=== PATIENT | female | born 1975 | race Caucasian/White ===

== ENCOUNTER 2020-04-14 18:42 | Emergency (ER) | payer OTHER ==
--- NOTE | 2020-04-14 18:50 | PDOC ---
Rapid Medical Evaluation Time Seen by Provider: 04/14/20 18:45 Medical Evaluation: Allergies Allergy/AdvReac Type Severity Reaction Status Date / Time No Known Allergies Allergy Verified 04/14/20 18:45 04/14/20 18:46 I have performed a brief in-person evaluation of this patient. The patient presents with a chief complaint of: (spon ab x 2), ~6-7 weeks , here w/ on and off vaginal spotting x 4 days. No abd pain, dysuria, n/v/f/c. Has 1st at [address] in am Pertinent physical exam findings:stable, NAD I have ordered the following:labs/US The patient will proceed to the ED for further evaluation. Discharge Disposition - Diagnosis Vaginal bleeding affecting early - Referrals - Patient Instructions - Post Discharge Activity
[2020-04-14 18:52] VITALS: TEMP 98.3; BMI 29.2
--- NOTE | 2020-04-14 19:27 | PDOC ---
History of Present Illness - General Chief Complaint: Vaginal Bleeding Stated Complaint: VAGINAL BLEEDING/5WKS PREG Time Seen by Provider: 04/14/20 18:45 History Source: Patient Exam Limitations: No Limitations - History of Present Illness Initial Comments: 04/14/20 19:21 44 year old female with no significant pmhx (spon ab x 2), ~6-7 weeks complaining of 1 day of painless vaginal spotting. Pt states she noticed the spotting on her underwear. Pt states she only has 1 sexual partner. Pt denies hematuria, dysuria, vaginal discharge or ordor, passing any clots, abdominal cramping. Pt states she has had similar symptoms in the past with her 1st and 3rd pregnancies which resulted in spontaneous abortions. Pt otherwise denies any other symptoms. Past History - Medical History Allergies/Adverse Reactions: Allergies Allergy/AdvReac Type Severity Reaction Status Date / Time No Known Allergies Allergy Verified 04/14/20 18:45 Home Medications: Ambulatory Orders Ferrous Sulfate [Feosol] 325 mg PO BID #1 ud 11/10/13 Vitamins (Sjr) - 1 tab PO DAILY #1 tablet 11/10/13 Acetaminophen [Tylenol .Regular Strength -] 650 mg PO Q3H PRN #0 tablet 12/10/15 Ferrous Sulfate [Feosol] 325 mg PO BID ud 12/10/15 Ibuprofen [Motrin -] 200 mg PO Q4H PRN #0 tablet 12/10/15 Vitamins (Sjr) - 1 tab PO DAILY tablet 12/10/15 Asthma: No Cancer: No Cardiac Disorders: No COPD: No Diabetes: Yes () HTN: No Seizures: No Thyroid Disease: No - Immunization History Immunization Up to Date: Yes - Psycho-Social/Smoking History Smoking History: Never smoked Have you smoked in the past 12 months: No - Substance Abuse Hx (Audit-C & DAST Scrn) How often the patient has a drink containing alcohol: Monthly or less Score: In Men: 4 or > Positive; In Women: 3 or > Positive: 1 Screen Result (Pos requires Nsg. Audit-10AR): Negative In the last yr the pt used illegal drug/Rx for NonMed reason: No Score: Yes response is considered Positive: 0 Screen Result (Positive result requires Nsg. DAST-10): Negative Review of Systems - Review of Systems Constitutional: No: Chills, Fever, Weakness Respiratory: No: Shortness of Breath Cardiac (ROS): No: Chest Pain ABD/GI: No: Abdominal Distended, Diarrhea, Nausea, Vomiting : Yes: Symptoms Reported (vaginal bleeding). No: Burning, Dysuria, Discharge, Hematuria, Urgency Musculoskeletal: No: Back Pain Neurological: No: Headache, Numbness, Tingling, Weakness, Dizziness Hematologic/Lymphatic: No: Easy Bleeding *Physical Exam - Vital Signs Last Vital Signs Temp Pulse Resp BP Pulse Ox 98.3 F 71 20 128/70 100 04/14/20 18:46 04/14/20 18:46 04/14/20 18:46 04/14/20 18:46 04/14/20 18:46 - Physical Exam 04/14/20 19:25 Gen: AAOx 3, no acute distress, comfortable, no signs of respiratory distress HENT: atraumatic, normocephalic with no laceration or contusion. Nasal mucosa without erythema. Oropharynx without erythema or exudates. Mucous membranes moist. EYES: PERRL, EOM intact, conjunctiva pink NECK: supple; trachea midline; no JVD, no lymphadenopathy, or thyromegaly CV: RRR no murmurs, gallops, or rubs. CHEST: CTA b/l no wheezing, rales or rhonchi ABD: +BS/ND. no TTP; soft, no rebound, no guarding PELVIC: No external lesions, vaginal vault: no discharge, minimal blood, - midline tenderness elicited with manual exam, no CMT or adnexal tenderness; os with blood covering opening unable to visualize EXTREMITY: no cyanosis or erythema. 2+ dorsalis pedis, posterior tibial, and radial pulse. No pedal edema; no calf swelling or tenderness SKIN: no rash, warm and dry, no diaphoresis HEME: no purpura or ecchymosis NEURO: normal speech, CN II-XII intact, sensation intact, normal gait, no cerebellar deficits MS: 5/5 strength in all extremities, FROM intact in all extremities. Medical Decision Making - Medical Decision Making 04/14/20 19:26 44 year old female (spon ab x 2), ~6-7 weeks with vaginal spotting. T&S, UA, UC, beta HCG transvaginal US to assess for etopic . Will reassess based on results. Pt signed out to Jh MOORE pending TVUS results, labs and UA. 04/14/20 21:46 Discharge - Discharge Information Problems reviewed: Yes Clinical Impression/Diagnosis: Vaginal bleeding affecting early - Follow up/Referral - Patient Discharge Instructions - Post Discharge Activity
--- NOTE | 2020-04-14 20:17 | PDOC ---
*Physical Exam - Vital Signs Last Vital Signs Temp Pulse Resp BP Pulse Ox 98.3 F 71 20 128/70 100 04/14/20 18:46 04/14/20 18:46 04/14/20 18:46 04/14/20 18:46 04/14/20 18:46 Medical Decision Making - Medical Decision Making 04/14/20 20:16 Patient seen by the advanced practice provider under my supervision. Ancillary testing reviewed as necessary. I agree with plan as outlined by the advanced practice provider. Discharge - Discharge Information Problems reviewed: Yes Clinical Impression/Diagnosis: Vaginal bleeding affecting early Condition: Stable Disposition: HOME - Follow up/Referral Referrals: Angeli Fields MD [Staff Physician] - - Patient Discharge Instructions Patient Printed Discharge Instructions: Threatened , DI for Threatened Additional Instructions: Follow up without fail in the next 48 hours to repeat blood work and ultrasound - Post Discharge Activity
[2020-04-14 20:38] LABS: EPI CELLS 7 /uL (0-25.1); HYALINE CASTS 0 /uL (0-3.1); PH,URINE 5.5 (5.0-8.0); URINE APPEARANCE CLEAR; URINE BACTERIA 170 /uL (0-1359); URINE BILIRUBIN NEGATIVE (NEGATIVE); URINE COLOR YELLOW; URINE GLUCOSE (UA) NEGATIVE (NEGATIVE); URINE KETONE NEGATIVE (NEGATIVE); URINE LEUK ESTERASE NEGATIVE (NEGATIVE); URINE NITRITE NEGATIVE (NEGATIVE); URINE PROTEIN NEGATIVE (NEGATIVE); URINE RBC 3 /uL (0-23.9); URINE UROBILINOGEN 0.2 mg/dL (0.2-1.0); URINE WBC 5 /uL (0-25.8)
[2020-04-14 23:07] VITALS: BP 113/74; PULSE 61
== END 2020-04-14 23:05 | disposition home or self-care (01) ==
LOC: JER 18:42
DX: O20.9 Hemorrhage in early pregnancy, unspecified (principal); Z3A.01 Less than 8 weeks gestation of pregnancy
CPT/HCPCS: 36415; 76817-TC; 81003; 84702; 86850; 86900; 86901; 87077; 87086; 99284-25

== ENCOUNTER 2021-01-09 12:40 | Emergency (ER) | payer OTHER ==
[2021-01-09 12:45] VITALS: BP 119/72; PULSE 65; TEMP 98.6; BMI 29.6
[2021-01-09 14:56] LABS: EPI CELLS >36 /uL (0-25.1); HYALINE CASTS 4 /uL (0-3.1); PH,URINE 5.5 (5.0-8.0); URINE APPEARANCE CLOUDY; URINE BACTERIA 710 /uL (0-1359); URINE BILIRUBIN NEGATIVE (NEGATIVE); URINE COLOR YELLOW; URINE GLUCOSE (UA) NEGATIVE (NEGATIVE); URINE KETONE 2+ (NEGATIVE); URINE LEUK ESTERASE TRACE (NEGATIVE); URINE NITRITE NEGATIVE (NEGATIVE); URINE PROTEIN NEGATIVE (NEGATIVE); URINE RBC 18 /uL (0-23.9); URINE WBC 54 /uL (0-25.8)
== END 2021-01-09 17:12 | disposition home or self-care (01) ==
LOC: JER 12:40
DX: O36.4XX9 Maternal care for intrauterine death, other fetus (principal)
CPT/HCPCS: 36415; 76817-TC; 81003; 84702; 87086; 99284-25

== ENCOUNTER 2021-01-12 20:01 | Emergency (ER) | payer OTHER ==
[2021-01-12 20:18] VITALS: BMI 29.2
[2021-01-12] MEDS ORDERED: ACETAMINOPHEN 1000 MG/100 ML VIAL (NON FORMULARY) IVPB ONE (20:53)
[2021-01-12] MEDS ORDERED: ACETAMINOPHEN INJECTION 100 ML IVPB ONE (20:57)
[2021-01-12 20:58] LABS: BASO % 0.6 % (0-2.0); HEMATOCRIT 29.6 % (32.4-45.2); HEMOGLOBIN 9.8 GM/dL (10.7-15.3); LYMPH % 15.2 % (8-40); MEAN CELL VOLUME 90.9 fl (80-96); MEAN PLT VOLUME 9.6 fl (7.5-11.1); MONO % 4.9 % (3.8-10.2); NEUT % 77.3 % (42.8-82.8); PLATELET COUNT 220 K/MM3 (134-434); RBC 3.26 M/mm3 (3.60-5.2); WHITE BLOOD COUNT 10.9 K/mm3 (4.0-10.0)
[2021-01-12 21:05] LABS: INR 1.09 (0.83-1.09); PROTHROMBIN TIME (PATIENT) 13.1 SEC (9.7-13.0)
[2021-01-12 21:08] LABS: ACTIVATED PTT 29.3 SECONDS (25.2-36.5)
[2021-01-12 21:19] LABS: POTASSIUM 3.9 mmol/L (3.5-5.1)
[2021-01-12 21:21] LABS: BLOOD UREA NITROGEN 7.6 mg/dL (7-18); CALCIUM 7.8 mg/dL (8.5-10.1)
[2021-01-12 21:24] LABS: CREATININE 0.5 mg/dL (0.55-1.3)
[2021-01-12 21:26] LABS: BILIRUBIN,TOTAL 0.2 mg/dL (0.2-1); TOT PROT 5.6 g/dl (6.4-8.2)
[2021-01-12 23:46] LABS: BASO % 0.6 % (0-2.0); HEMATOCRIT 28.2 % (32.4-45.2); HEMOGLOBIN 9.4 GM/dL (10.7-15.3); MCHC 33.2 g/dl (32.0-36.0); MEAN CELL VOLUME 90.2 fl (80-96); MEAN PLT VOLUME 9.4 fl (7.5-11.1); MONO % 3.6 % (3.8-10.2); NEUT % 74.8 % (42.8-82.8); PLATELET COUNT 202 K/MM3 (134-434); RBC 3.13 M/mm3 (3.60-5.2); RDW 13.8 % (11.6-15.6); WHITE BLOOD COUNT 11.3 K/mm3 (4.0-10.0)
[2021-01-13 00:23] VITALS: BP 96/51; PULSE 75; TEMP 98.9
== END 2021-01-13 01:59 | disposition home or self-care (01) ==
LOC: JER 20:01
PROC: 3E033GC Introduction of Other Therapeutic Substance into Peripheral Vein, Percutaneous Approach (ICD-10-PCS; principal; 2021-01-12)
DX: O03.9 Complete or unspecified spontaneous abortion without complication (principal); Z3A.09 9 weeks gestation of pregnancy
CPT/HCPCS: 36415; 76817-TC; 80053; 84702; 85025; 85610; 85730; 86850; 86900; 86901; 99284-25; J0131